=== PATIENT | male | born 1970 | race Caucasian/White ===

== ENCOUNTER → 2023-12-28 08:33 | Outpatient (REF) | payer BC, SELFPAY | LOC: HWRAD 08:33 | PROVIDERS: ATTENDING PHYSICIAN Orthopaedic Surgery; FAMILY PHYSICIAN Family Medicine Sports Medicine | DX: S05.50XA Penetrating wound with foreign body of unspecified eyeball, initial encounter (principal) | CPT/HCPCS: 70030 ==

== ENCOUNTER 2024-01-05 14:30 | Emergency (ER) | payer BC, SELFPAY ==
[2024-01-05 14:38] VITALS: BP 138/107
--- NOTE | 2024-01-05 16:12 | ED.GENMED ---
History of Present Illness
General
Chief Complaint: Abdominal Symptoms
Source: patient
Time Seen by Provider: 01/05/24 15:58
History of Present Illness
History of Present Illness:
53yoM with no significant past medical history presenting for evaluation of diarrhea. Patient has been on multiple rounds of antibiotics within the past week for an elbow infection. He started to have GI upset and diarrhea several weeks ago. His
PCP then prescribed him another antibiotic for this which he finished 4 days ago. Patient reports some minor improvement while on this antibiotic but now symptoms have recurred. He is having about 10 episodes of watery diarrhea daily. He denies
any blood or mucus in the stool. Patient was golfing today and started to have nausea, vomiting, and some body aches. He denies any fevers or abdominal pain.
Past History
Past History
ED Past Medical History: None
ED Past Surgical History: None
Social History
Tobacco: Non-smoker
Alcohol: None
Drug: None
Living: with family
Phy Exam
General Physical Exam
General Presentation: well appearing and no apparent distress
General age: appears stated age
General Skin: warm and dry
General Habitus: normal
General Mental: alert
Cardiovascular Exam
Cardiovascular Exam: regular rate/rhythm
Pulmonary Exam
Pulmonary Exam: no respiratory distress
Gastrointestinal Exam
Gastrointestinal Exam: non tender, soft and non distended
Neurological Exam
Neurological Exam: alert
[place] Coma Scale
Eye Opening: Spontaneous
Verbal Response: Oriented
Motor Response: Obeys Commands
GCS Total Score: 15
Skin Exam
Skin Exam: normal color and warm/dry
Psychiatric Exam
Psychiatric Exam: normal mood/affect
Course
Orders/Labs/Results
Orders:
Orders
01/05/24 16:11
0.9% Sodium Chloride 1000 ml [Nss] 1,000 ml IV BOLUS
01/05/24 16:38
Complete Blood Count/With Diff Urgent
Comprehensive Metabolic Panel Urgent
Lipase Urgent
Magnesium Urgent
01/05/24 17:10
CDIFF [C difficile Antigen & Toxins] Urgent
BUZZ Source: Feces/Stool
Specimen Description:
Date Specimen was Collected: 01/05/24
Time Specimen was Collected: 16:59
Stool Culture Urgent
BUZZ Source: Feces/Stool
Specimen Description:
Date Specimen was Collected: 01/05/24
Time Specimen was Collected: 16:59
01/05/24 18:08
Potassium Urgent
01/05/24 18:20
Vancomycin HCl [Firvanq] 125 mg PO NOW STA
Abnormal Lab Results
01/05/24
16:38
WBC 17.4 H 10^3/uL
(4.8-10.8)
RBC 4.67 L 10^6/uL
(4.70-6.10)
Abs Immat Gran (auto) 0.1 H 10^3/uL
(0-0.05)
Absolute Neuts (auto) 15.7 H 10^3/uL
(1.4-6.5)
Absolute Lymphs (auto) 0.7 L 10^3/uL
(1.2-3.4)
Absolute Monos (auto) 0.8 H 10^3/uL
(0.1-0.6)
Immature Gran % 0.6 H %
(0-0.5)
Neutrophils % 90.3 H %
(42.2-75.2)
Lymphocytes % 4.2 L %
(20.5-51.1)
Potassium 5.2 H mmol/L
(3.5-5.1)
Glucose 107 H mg/dl
(70-99)
01/05/24 16:38
01/05/24 18:08
Vital Signs
Initial and Last Documented VS:
Initial Vital Signs
Temp Pulse Resp BP Pulse Ox
98.8 F 99 18 138/107 98
01/05/24 14:38 01/05/24 14:38 01/05/24 14:38 01/05/24 14:38 01/05/24 14:38
Last Documented Vital Signs
Temp Pulse Resp BP Pulse Ox
98.8 F 99 18 138/107 98
01/05/24 14:38 01/05/24 14:38 01/05/24 14:38 01/05/24 14:38 01/05/24 14:38
MDM/Problems Addressed
Differential Diagnosis Includes:
53yoM here with diarrhea and stomach upset in setting of multiple recent courses of abx. Having 10+ episodes of watery diarrhea daily. No fevers. No abdominal pain currently. He is afebrile and hemodynamically stable. He is well-appearing no
acute distress. Abdominal exam is benign. Differential diagnosis includes but is not limited to: C. difficile infection, gastroenteritis, antibiotic side effect, dehydration, electrolyte abnormality
Initial ED plan: Check abdominal labs and magnesium. Will obtain stool studies. IV fluid bolus. Defer abdominal imaging given benign exam.
*Critical Care Note
Total Time (30-74mins, 75-104mins- exclusive of procedures): Not Applicable
Update Note
Update Note:
Patient was able to provide a stool sample which is positive for C. difficile. White count elevated at 17 which is consistent with underlying C. difficile infection. Potassium 5.2 which I suspect is a lab error as renal function is normal. Repeat
potassium obtained which is normal at 4.8. Remainder of electrolytes are normal. Patient stable for discharge. I was able to review his recent antibiotics and he finished a 7-day course of Flagyl 4 days ago. He was also prescribed vancomycin x 7
days 1 month ago. Patient was given a prescription for vancomycin x 14 days. Supportive care discussed. Advised follow-up with PCP and GI. Strict ED return precautions discussed. He was discharged in stable condition.
ED Attending Note
-
Portions of this chart may have been created with voice recognition software.� Occasional wrong word or��sound alike� substitutions may have occurred due to the inherent limitations of voice recognition software.
Discharge Plan
Departure
Patient Disposition: Home (Routine Discharge)
Date of Disposition: 01/05/24
Time of Disposition: 18:29
Patient with high blood pressure during this ER visit?: No
Discharge Problem:
Clostridium difficile diarrhea
Instructions: Clostridioides difficile ED
Prescriptions:
New
vancomycin 125 mg capsule
125 mg PO QID 14 Days Qty: 56 0RF
No Action
Theragen Tablet
2 tab PO DAILY
ibuprofen [Advil] 200 mg Tablet
400 mg PO Q6HPRN PRN (Reason: mild pain)
Pepto-Bismol 262 mg Tablet
524 mg PO Q1HPRN PRN (Reason: GI issues)
Visbiome 112.5 billion cell Capsule
2 cap PO DAILY
Referrals:
Rakan Paul MD [Active] -
Az Umana DO [Family Provider] -
Activity Restrictions/Additional Instructions:
Take vancomycin as prescribed. You may stop taking this after 10 days if diarrhea has resolved. If diarrhea is persistent, finish the 14 day course.
Drink plenty of fluids and stay hydrated.
Wash hands and home surfaces frequently to prevent the spread of infection.
Please follow-up with gastroenterology and your family doctor. Return to the ER with any worsening symptoms, fevers, excessive vomiting, or severe abdominal pain.
Discharge Date and Time
Print Language: [place]
[2024-01-05] MEDS: NSS 1000 IV (16:39)
[2024-01-05 16:45] LABS: % Basophils 0.3 % (0-2); % Immature Granulocytes 0.6 % (0-0.5); % Lymphocytes 4.2 % (20.5-51.1); % Monocytes 4.6 % (1.7-9.3); % Neutrophils 90.3 % (42.2-75.2); Absolute Basophils 0.1 10^3/uL (0-0.2); Absolute Immature Granulocytes 0.1 10^3/uL (0-0.05); Absolute Lymphocytes 0.7 10^3/uL (1.2-3.4); Absolute Monocytes 0.8 10^3/uL (0.1-0.6); Absolute Neutrophils 15.7 10^3/uL (1.4-6.5); Hematocrit 40.9 % (39.0-52.0); Hemoglobin 14.5 g/dL (13.0-18.0); Mean Corp Hgb Conc. 35.5 g/dL (33.0-37.0); Mean Corpuscular Volume 87.6 fL (80.0-94.0); Mean Platelet Volume 9.5 fL (7.4-10.4); Nucleated Red Blood Cells % 0 % (-); Platelet Count 252 10^3/uL (130-400); Red Blood Cell Count 4.67 10^6/uL (4.70-6.10); Red Cell Dist. Width 12.3 % (11.5-14.5); White Blood Cell Count 17.4 10^3/uL (4.8-10.8)
[2024-01-05 17:16] LABS: ALT (SGPT) 29 U/L (0-50); AST (SGOT) 30 U/L (17-59); Albumin 4.4 g/dl (3.5-5.0); Alkaline Phosphatase 58 U/L (38-126); Blood Urea Nitrogen 13 mg/dl (9-20); Calcium 9.9 mg/dl (8.4-10.2); Carbon Dioxide 27 mmol/L (22-30); Chloride 102 mmol/L (98-107); Glucose 107 mg/dl (70-99); Potassium 5.2 mmol/L (3.5-5.1); Sodium 141 mmol/L (135-145); Total Bilirubin 1.1 mg/dl (0.2-1.3); Total Protein 6.8 g/dl (6.3-8.2); eGFR > 60.00
[2024-01-05 17:17] LABS: Lipase 60 U/L (23-300)
[2024-01-05 18:28] LABS: Potassium 4.8 mmol/L (3.5-5.1)
[2024-01-05 18:58] VITALS: BP 123/76
[2024-01-05] MEDS: FIRVANQ 125 MG PO (19:45)
== END 2024-01-05 19:48 | disposition home or self-care (01) ==
LOC: EMR 14:30
PROVIDERS: Physician Assistant; EMERGENCY PHYSICIAN Emergency Medicine; FAMILY PHYSICIAN Family Medicine Sports Medicine
DX: A04.72 Enterocolitis due to Clostridium difficile, not specified as recurrent (principal); R19.7 Diarrhea, unspecified
CPT/HCPCS: 99283; 96360; 80053; 83690; 83735; 84132; 85025; 87045; 87046; 87077; 87324; 87427; 87449

== ENCOUNTER 2024-02-22 05:42 | Day surgery (SDC) | payer BC, SELFPAY ==
[2024-02-14 13:17] VITALS: BMI 25.5
[2024-02-22] VITALS (11 sets, daily range): BP systolic 113–133; BP diastolic 66–99; BMI 25.5
[2024-02-22] MEDS: CELEBREX 200 MG PO (10:04)
[2024-02-22] MEDS: TYLENOL 1000 MG PO (10:04)
[2024-02-22] MEDS: VANCOCIN 300 MG IV (10:29)
[2024-02-22] MEDS: VANCOCIN 300 ML IV (10:29)
== END 2024-02-22 15:30 | disposition home or self-care (01) ==
LOC: SDS 05:42
PROVIDERS: ATTENDING PHYSICIAN Orthopaedic Surgery; FAMILY PHYSICIAN Family Medicine Sports Medicine
DX: S46.011A Strain of muscle(s) and tendon(s) of the rotator cuff of right shoulder, initial encounter (principal); S43.431A Superior glenoid labrum lesion of right shoulder, initial encounter; X58.XXXA Exposure to other specified factors, initial encounter
CPT/HCPCS: 29827; 29823; 36415; 93005; C1713

== ENCOUNTER 2024-04-29 14:26 | Outpatient (RCR) | payer BC, SELFPAY | END 2024-04-29 23:59 | disposition home or self-care (01) | LOC: RPT 14:26 | PROVIDERS: ATTENDING PHYSICIAN Orthopaedic Surgery; FAMILY PHYSICIAN Family Medicine Sports Medicine | DX: Z47.89 Encounter for other orthopedic aftercare (principal); Z73.6 Limitation of activities due to disability; M25.511 Pain in right shoulder; M62.81 Muscle weakness (generalized) | CPT/HCPCS: 97010; 97110; 97140; 97162 ==

== ENCOUNTER 2024-05-29 16:06 | Outpatient (RCR) | payer BC, SELFPAY | END 2024-05-29 23:59 | disposition home or self-care (01) | LOC: RPT 16:06 | PROVIDERS: ATTENDING PHYSICIAN Orthopaedic Surgery; FAMILY PHYSICIAN Family Medicine Sports Medicine | DX: Z47.89 Encounter for other orthopedic aftercare (principal); Z73.6 Limitation of activities due to disability; M25.511 Pain in right shoulder; M62.81 Muscle weakness (generalized) | CPT/HCPCS: 97010; 97110; 97140 ==

== ENCOUNTER 2024-06-20 06:11 | Day surgery (SDC) | payer BC, SELFPAY | END 2024-06-20 10:38 | disposition home or self-care (01) | LOC: GI 06:11 | PROVIDERS: ATTENDING PHYSICIAN Internal Medicine; FAMILY PHYSICIAN Family Medicine Sports Medicine | DX: Z12.11 Encounter for screening for malignant neoplasm of colon (principal); K57.30 Diverticulosis of large intestine without perforation or abscess without bleeding; K64.8 Other hemorrhoids; Z87.19 Personal history of other diseases of the digestive system | CPT/HCPCS: 45380; 88305 ==

== ENCOUNTER 2024-06-26 16:11 | Outpatient (RCR) | payer BC, SELFPAY | END 2024-06-26 23:59 | disposition home or self-care (01) | LOC: RPT 16:11 | PROVIDERS: ATTENDING PHYSICIAN Orthopaedic Surgery; FAMILY PHYSICIAN Family Medicine Sports Medicine | DX: Z47.89 Encounter for other orthopedic aftercare (principal); Z73.6 Limitation of activities due to disability; M25.511 Pain in right shoulder; M62.81 Muscle weakness (generalized); Z98.890 Other specified postprocedural states | CPT/HCPCS: 97010; 97110 ==

== ENCOUNTER 2024-07-22 16:04 | Outpatient (RCR) | payer BC, SELFPAY | END 2024-07-23 05:40 | disposition home or self-care (01) | LOC: RPT 16:04 | PROVIDERS: ATTENDING PHYSICIAN Orthopaedic Surgery; FAMILY PHYSICIAN Family Medicine Sports Medicine | DX: Z47.89 Encounter for other orthopedic aftercare (principal); M25.511 Pain in right shoulder; M62.81 Muscle weakness (generalized); Z73.6 Limitation of activities due to disability; Z98.890 Other specified postprocedural states | CPT/HCPCS: 97010; 97110 ==